=== PATIENT | male | born 1980 | race Caucasian/White ===

== ENCOUNTER 2019-10-12 09:02 | Emergency (ER) | payer SELFPAY ==
[~2019-10-12] VITALS: Ht 180.3 cm; Wt 99.8 kg
[2019-10-12 09:13] VITALS: BP 136/77
--- NOTE | 2019-10-12 09:20 | NUR ---
pt ambulated to bed c with steady gait.
--- NOTE | 2019-10-12 09:24 | NUR ---
dr wheeler at bedside evaluating pt.
--- NOTE | 2019-10-12 09:40 | NUR ---
dr wheeler at bedside reevaluating pt.
--- NOTE | 2019-10-12 09:44 | NUR ---
c/o left facial droop x 8 days ago----full clear speech, uneven forehead wrinkle, no drift noted equal hand range rider, steady gait---denies headache at this time . pt aox4 , afibrile , ambulatory with steady gait. hx--denies rx---none
--- NOTE | 2019-10-12 09:53 | NUR ---
Patient discharged with v/s stable. Written and verbal after care instructions given and explained regarding bells palsy. Patient alert, oriented and verbalized understanding of instructions. Ambulatory with steady gait. All questions addressed prior to discharge. ID band removed. Patient advised to follow up with PMD. Rx of artificial eye drops and prednisone given. Patient educated on indication of medication including possible reaction and side effects. Opportunity to ask questions provided and answered.
[2019-10-12 09:56] VITALS: BP 136/77
== END 2019-10-12 09:53 | disposition home or self-care (01) ==
LOC: MED 09:02
DX: G51.0 Bell's palsy (principal)
CPT/HCPCS: 99283

== ENCOUNTER 2022-07-29 12:01 | Emergency (ER) | payer SELFPAY ==
[~2022-07-29] VITALS: Ht 180.3 cm; Wt 97.5 kg
[2022-07-29 12:07] VITALS: BP 120/84
--- NOTE | 2022-07-29 12:13 | NUR ---
AMBULATED TO BED 12
[2022-07-29] MEDS ORDERED: BACITRACIN OINT 500 UNITS/GM PKT TP ONE (12:30)
[2022-07-29] MEDS ORDERED: LIDOCAINE MPF 1% 10 MG/ML VIAL INJ ONE (12:30)
--- NOTE | 2022-07-29 12:58 | NUR ---
ASSUMED PATIENT CARE, NURSING ASSESSMENT COMPLETED.
[2022-07-29] MEDS ORDERED: IBUP-2213 PO (13:33)
[2022-07-29] MEDS ORDERED: BACI-416 TP (13:33)
[2022-07-29 13:51] VITALS: BP 120/84
--- NOTE | 2022-07-29 13:51 | NUR ---
Patient discharged with v/s stable. Written and verbal after care instructions given and explained. Patient alert, oriented and verbalized understanding of instructions. Ambulatory with steady gait. All questions addressed prior to discharge. ID band removed. Patient advised to follow up with PMD. Rx of BACITRACIN, IBUPROFEN given. Patient educated on indication of medication including possible reaction and side effects. Opportunity to ask questions provided and answered.
== END 2022-07-29 13:51 | disposition home or self-care (01) ==
LOC: MED 12:01
DX: S51.812A Laceration without foreign body of left forearm, initial encounter (principal); W26.8XXA Contact with other sharp object(s), not elsewhere classified, initial encounter; Y93.89 Activity, other specified; Y92.89 Other specified places as the place of occurrence of the external cause; Y99.8 Other external cause status
CPT/HCPCS: 12002; 99282; J2001

== ENCOUNTER 2022-07-31 09:27 | Emergency (ER) | payer SELFPAY ==
[~2022-07-31] VITALS: Ht 180.3 cm; Wt 102.5 kg
[~2022-07-31 09:27] MED LIST: BACI-416 TP; IBUP-2213 PO
[2022-07-31 09:40] VITALS: BP 134/83
--- NOTE | 2022-07-31 09:45 | NUR ---
pt to bed 6
--- NOTE | 2022-07-31 10:31 | NUR ---
Patient discharged with v/s stable. Written and verbal after care instructions FOR WOUND CARE given and explained. Patient verbalized understanding. Ambulatory with steady gait. All questions addressed prior to discharge. Advised to follow up with PMD.
--- NOTE | 2022-07-31 10:31 | NUR ---
1026 PT'S WOUND TO LEFT FOREARM WAS CLEANED W/ NS AND 2X2 GAUZE. WOUND WAS THEN DRESSED W/ NON-ADHERENT GAUZE PAD AND WRAPPED W/ GAUZE ROLL.
== END 2022-07-31 10:31 | disposition home or self-care (01) ==
LOC: MED 09:27
DX: S51.812A Laceration without foreign body of left forearm, initial encounter (principal); W26.8XXA Contact with other sharp object(s), not elsewhere classified, initial encounter; Y93.89 Activity, other specified; Y92.89 Other specified places as the place of occurrence of the external cause; Y99.8 Other external cause status
CPT/HCPCS: 99283

== ENCOUNTER 2022-08-09 13:53 | Emergency (ER) | payer SELFPAY ==
[~2022-08-09] VITALS: Ht 180.3 cm; Wt 90.7 kg
[2022-08-09 14:02] VITALS: BP 130/80
--- NOTE | 2022-08-09 14:43 | NUR ---
Patient discharged with v/s stable. Written and verbal after care instructions given and explained. Patient verbalized understanding. Ambulatory with steady gait. All questions addressed prior to discharge. Advised to follow up with PMD.
== END 2022-08-09 14:33 | disposition home or self-care (01) ==
LOC: MED 13:53
DX: S61.512D Laceration without foreign body of left wrist, subsequent encounter (principal); Z48.02 Encounter for removal of sutures; Z79.1 Long term (current) use of non-steroidal anti-inflammatories (NSAID); Z79.2 Long term (current) use of antibiotics; X58.XXXD Exposure to other specified factors, subsequent encounter
CPT/HCPCS: 99281